=== PATIENT | female | born 1950 | race Two or more races ===

== ENCOUNTER 2017-11-07 12:34 | Outpatient (CLI) | payer OTHER | END 2017-11-07 12:41 | disposition home or self-care (01) | LOC: SONOGRAMA 12:34 | DX: E04.1 Nontoxic single thyroid nodule (principal) ==

== ENCOUNTER 2018-09-26 08:00 | Inpatient (IN) | payer OTHER ==
[~2018-09-26] VITALS: Ht 162.6 cm; Wt 70.3 kg
[2018-09-26] MEDS ORDERED: XARELTO20 MG PO (11:12)
[2018-09-26] MEDS ORDERED: TOPROL XL25 M1 PO (11:12)
[2018-09-26] MEDS ORDERED: COZAAR100 MG PO (11:12)
[2018-10-02] MEDS ORDERED: INTEGRA PLUS C1 EACH PO (07:56)
[2018-10-02] MEDS ORDERED: OXYC1TAB9 PO (07:57)
[2018-10-02] MEDS ORDERED: XARELTO20 MG PO (07:57)
== END 2018-10-02 20:50 | DRG 470 ==
LOC: SURH 09-29 07:15 → O/R 09-29 07:15 → SURH 09-29 08:00
PROVIDERS: ADMIT Orthopaedic Surgery Sports Medicine
PROC: 0SRD0J9 Replacement of Left Knee Joint with Synthetic Substitute, Cemented, Open Approach (ICD-10-PCS; principal; 2018-09-29 13:00)
DX: M17.12 Unilateral primary osteoarthritis, left knee (principal); I10 Essential (primary) hypertension; E78.49 Other hyperlipidemia; I49.8 Other specified cardiac arrhythmias; Z79.01 Long term (current) use of anticoagulants